=== PATIENT | male | born 1985 | race American Indian/Alaskan Native ===

== ENCOUNTER 2021-08-03 02:12 | Emergency (ER) | payer MEDICAID ==
[2021-08-03 02:48] VITALS: BP 163/112
[2021-08-03] MEDS ORDERED: IBUPROFEN 600 MG TAB PO ONE (03:11)
[2021-08-03] MEDS ORDERED: ACETAMINOPHEN 500 MG TAB PO ONE (03:11)
--- NOTE | 2021-08-03 03:47 | XRay Report ---
Left knee 3 views INDICATION: Fall FINDINGS: No acute fracture dislocation. No joint effusion. Signer Name: Kelvin Meneses MD Signed: 08/03/2021 3:43 AM Workstation Name: [id number]
--- NOTE | 2021-08-03 04:16 | Emergency Department Report ---
ED Fall HPI - General Chief Complaint: Extremity Injury, Lower Stated Complaint: LEFT LEG PAIN Source: patient Mode of arrival: Wheelchair - History of Present Illness Initial Comments: Patient is a 35-year-old -[place] male with no past medical history who presents to the ED with complaint of acute onset persistent severe left knee pain and swelling after he tripped and fell down in the field while playing about 6 days ago. Patient states that he has not been able to bear weight on the left knee because of worsening pain. Patient denies dizziness, syncope, chest pain, shortness of breath, numbness and tingling or weakness of left leg, back pain, fever, chills, hip pain, head or neck injuries or abdominal pain. MD Complaint: fall, other (Left knee pain and swelling) -: Sudden, days(s) (6) Fall From: other (Playing sports) When Fall Occurred: # days [employer] (6) Fall Witnessed: yes, by bystander Place Fall Occurred: street Loss of Consciousness: none Prolonged Down Time?: no Symptoms Prior to Fall: none Location: other (Left knee pain) Location - Extremities: Left: Knee (Left knee pain and swelling) Severity: severe Severity scale (0 -10): 8 Quality: sharp, aching Context: tripped/slipped Associated Symptoms: denies: headache, abdominal pain, hematuria, lightheaded, vertigo, confusion, other - Related Data Previous Rx's Medication Instructions Recorded Last Taken Type Acetaminophen/Codeine [Tylenol 1 tab PO Q6H PRN #10 tab 08/03/21 Unknown Rx /Codeine # 3 tab] Ibuprofen [Motrin] 800 mg PO Q8HR PRN #30 tablet 08/03/21 Unknown Rx Allergies Allergy/AdvReac Type Severity Reaction Status Date / Time No Known Allergies Allergy Unverified 08/03/21 02:50 ED Review of Systems ROS: Stated complaint: LEFT LEG PAIN Other details as noted in HPI Constitutional: denies: chills, fever Eyes: denies: eye pain, eye discharge, vision change ENT: denies: ear pain, throat pain Respiratory: denies: cough, shortness of breath, wheezing Cardiovascular: denies: chest pain, palpitations Endocrine: no symptoms reported Gastrointestinal: denies: abdominal pain, nausea, diarrhea Genitourinary: denies: urgency, dysuria Musculoskeletal: joint swelling (Left knee swelling), arthralgia (Left knee pain). denies: back pain Skin: denies: rash, lesions Neurological: denies: headache, weakness, paresthesias Psychiatric: denies: anxiety, depression Hematological/Lymphatic: denies: easy bleeding, easy bruising ED Past Medical Hx - Social History Smoking Status: Current Every Day Smoker Substance Use Type: Marijuana - Medications Home Medications: Home Medications Medication Instructions Recorded Confirmed Last Taken Type Acetaminophen/Codeine [Tylenol 1 tab PO Q6H PRN #10 tab 08/03/21 Unknown Rx /Codeine # 3 tab] Ibuprofen [Motrin] 800 mg PO Q8HR PRN #30 tablet 08/03/21 Unknown Rx ED Physical Exam - General Limitations: No Limitations General appearance: alert, in no apparent distress - Head Head exam: Present: atraumatic, normocephalic, normal inspection - Eye Eye exam: Present: normal appearance, PERRL, EOMI Pupils: Present: normal accommodation - ENT ENT exam: Present: normal exam, normal orophraynx, mucous membranes moist, TM's normal bilaterally, normal external ear exam - Neck Neck exam: Present: normal inspection, full ROM - Respiratory Respiratory exam: Present: normal lung sounds bilaterally. Absent: respiratory distress, wheezes, rales, rhonchi, chest wall tenderness, accessory muscle use, decreased breath sounds - Cardiovascular Cardiovascular Exam: Present: normal rhythm, tachycardia, normal heart sounds. Absent: systolic murmur, diastolic murmur, rubs, gallop - GI/Abdominal GI/Abdominal exam: Present: soft, normal bowel sounds. Absent: tenderness, guarding, rebound, hyperactive bowel sounds, organomegaly, mass - Extremities Exam Extremities exam: Present: normal inspection, full ROM, tenderness (Palpable left knee tenderness with mild swelling and limited range of motion due to pain), normal capillary refill. Absent: pedal edema, joint swelling, calf tenderness - Back Exam Back exam: Present: normal inspection, full ROM. Absent: tenderness, CVA tenderness (R), CVA tenderness (L), muscle spasm, paraspinal tenderness, vertebral tenderness - Neurological Exam Neurological exam: Present: alert, oriented X3, CN II-XII intact, normal gait, reflexes normal - Psychiatric Psychiatric exam: Present: normal affect, normal mood - Skin Skin exam: Present: warm, dry, intact, normal color. Absent: rash ED Course Vital Signs 08/03/21 08/03/21 08/03/21 02:43 02:48 05:13 Temperature 99.9 F H Pulse Rate 117 H Respiratory 19 18 Rate Blood Pressure 163/112 O2 Sat by Pulse 97 Oximetry 08/03/21 05:26 Temperature 98.1 F Pulse Rate Respiratory Rate Blood Pressure O2 Sat by Pulse Oximetry ED Medical Decision Making - Radiology Data Radiology results: report reviewed, image reviewed [facility] [address] [place] [address] XRay Report Signed Patient: JESUS TOMPKINS MR#: [id number] : 1985 Acct:[id number] Age/Sex: 35 / M ADM Date: 08/03/21 Loc: ED Attending Dr: Ordering Physician: JAYDON CHACON Date of Service: 08/03/21 Procedure(s): XR knee 3V LT Accession Number(s): [id number] cc: JAYDON CHACON Fluoro Time In Minutes: Left knee 3 views INDICATION: Fall FINDINGS: No acute fracture dislocation. No joint effusion. Signer Name: Kelvin Meneses MD Signed: 08/03/2021 3:43 AM Workstation Name: [id number] Transcribed By: CW Dictated By: NIKKO MENESES MD Electronically Authenticated By: NIKKO MENESES MD Signed Date/Time: 08/03/21342 DD/ 2 TD/TT: Print - Medical Decision Making This is a 35-year-old -[place] male with no past medical history who presents to the ED with complaint of acute onset persistent severe left knee pain and swelling after he tripped and fell down in the field while playing about 6 days ago. Patient states that he has not been able to bear weight on the left knee because of worsening pain. In the ED, patient is alert and oriented x3 and is not in any distress. Patient however appears to be in significant pain during the physical exam. Left knee x-ray showed no acute fractures or subluxations. Patient was treated for pain in the ED and on re evaluation, patient's pain is well controlled medication. Patient was discharged home on pain medications and advised to follow-up with his primary care physician in 5 to 7 days for reevaluation. Patient was also referred to the orthopedic surgeon on-call Dr. Almanzar for follow-up as needed. Patient was advised to return to the ED immediately if symptoms get worse. - Differential Diagnosis Knee sprain; knee fracture; knee muscle spasm; knee contusion Critical care attestation.: If time is entered above; I have spent that time in minutes in the direct care of this critically ill patient, excluding procedure time. ED Disposition Clinical Impression: Sprain of left knee/leg Qualifiers: Encounter type: initial encounter Qualified Code(s): S83.92XA - Sprain of unspecified site of left knee, initial encounter Contusion of left knee Qualifiers: Encounter type: initial encounter Qualified Code(s): S80.02XA - Contusion of left knee, initial encounter Disposition: HOME / SELF CARE / HOMELESS Is pt being admited?: No Does the pt Need Aspirin: No Condition: Stable Instructions: Knee Sprain, Adult, [id number], Contusion, [id number] Additional Instructions: The left knee x-ray showed no acute fractures or subluxations. Therefore your injuries are likely musculoskeletal. Take medications with food, drink plenty of fluids and follow-up with your primary care physician in 5 to 7 days for reevaluation. Return to the ED immediately if symptoms get worse. Consider following up with the orthopedic surgeon director special education Dr. Almanzar for further evaluation. Prescriptions: Ibuprofen [Motrin] 800 mg PO Q8HR PRN #30 tablet PRN Reason: Pain , Severe (7-10) Acetaminophen/Codeine [Tylenol /Codeine # 3 tab] 1 tab PO Q6H PRN #10 tab PRN Reason: Pain , Severe (7-10) Referrals: [facility] [Provider Group] - 3-5 Days MARGARET ALMANZAR MD [Staff Physician] - 3-5 Days Forms: Work/School Release Form(ED) Time of Disposition: 04:24 Print Language: INDONESIAN
== END 2021-08-03 05:29 | disposition home or self-care (01) ==
LOC: ED 02:12
DX: S83.92XA Sprain of unspecified site of left knee, initial encounter (principal); F17.200 Nicotine dependence, unspecified, uncomplicated; F12.90 Cannabis use, unspecified, uncomplicated; Z79.899 Other long term (current) drug therapy; W01.0XXA Fall on same level from slipping, tripping and stumbling without subsequent striking against object, initial encounter; Y93.89 Activity, other specified; Y92.89 Other specified places as the place of occurrence of the external cause; Y99.8 Other external cause status
CPT/HCPCS: 99283